=== PATIENT | male | born 1965 | race Caucasian/White ===

== ENCOUNTER → 2017-03-13 12:22 | Outpatient (CLI) | payer BC, SELFPAY ==
--- NOTE | 2017-03-13 12:34 | CT_ITS ---
CT angio head CLINICAL INDICATION: ITS.REASON: CVA DUE TO THROMBOSIS RT CEREBRAL ARTERY ORDERING PHYSICIAN: Funmilayo May MD PATIENT AGE: 52 years TECHNIQUE: Axial images are obtained following the bolus administration of 100 mL's of Isovue-370. Sagittal and coronal reformatted images are generated and reviewed COMPARISON: CT angiogram of the neck of the same day FINDINGS: No aneurysm or Major intracranial occlusive process is evident. No evidence of arteriovenous malformation. The carotids and vertebrals are patent. Basilar artery has an unremarkable appearance. Patient has a known right occipital infarction as seen on MRI of the same day. The proximal and mid aspect of the posterior cerebral arteries are patent. No enhancing lesions are evident. No intracranial mass or midline shift. IMPRESSION: Negative CTA of the brain
--- NOTE | 2017-03-13 12:34 | CT_ITS ---
CT angio neck CLINICAL INDICATION: ITS.REASON: CVA DUE TO THROMBOSIS OF RT POST.CEREBRAL ARTERY ORDERING PHYSICIAN: Funmilayo May MD PATIENT AGE: 52 years TECHNIQUE: Axial images obtained following the intravenous administration of 100 and MLO spot 70. Sagittal, coronal, and 3-D reformatted images are also generated and reviewed COMPARISON: None FINDINGS: The great vessels have an unremarkable appearance. No carotid stenosis or carotid or vertebral dissection evident. Vertebral arteries are patent bilaterally. No neck mass or other significant anomalies apparent. There are degenerative changes in the cervical spine with multilevel degenerative disc disease with endplate disc osteophyte complexes. There is canal stenosis with bilateral foraminal narrowing at C3-C4 and to a lesser degree at C4-C5 and C5-C6 as well as C6-C7. MRI cervical spine Evaluation of clinically warranted. IMPRESSION: 1. Negative CT angiogram of the neck. No evidence of carotid stenosis. Vertebral arteries are patent. 2. Multilevel cervical spondylosis with canal and facet narrowing which may be better evaluated with MRI clinically desired
--- NOTE | 2017-03-13 13:27 | MR_ITS ---
MR head/brain wo con HISTORY: Right-sided facial numbness with visual disturbance, stroke, post CVA ORDERING PHYSICIAN: Funmilayo May MD PATIENT AGE: 52 years COMPARISON: 01/04/2017 TECHNIQUE: Standard multiplanar multiecho sequences are performed without and with gadolinium enhancement. FINDINGS: No midline shift or mass effect is evident. There are old bilateral lacunar infarctions of the basal ganglia as well as an old small infarction of the right superior cerebellum. There is a new area of increased diffusion signal and T2 signal in the medial aspect of the right occipital lobe posteriorly measuring 3 cm longitudinal and 1.7 cm transverse consistent with an area of acute/subacute infarction. This does show some decrease signal on the ADC images. There is some minimal increased T1 signal in the right occipital lobe along the lateral and anterior aspect of the infarction and could be related to a small amount of hemorrhage not readily apparent on the previous study. No enhancing lesions are evident. The cerebellopontine angles, cerebellum, and brainstem are unremarkable. There are periventricular ischemic gliotic changes. There is mild mucosal thickening of the paranasal sinuses. No air-fluid level demonstrated. IMPRESSION: 1. Interval development of acute/subacute infarction in the right occipital lobe. There is some minimal increased T1 signal along the anterior and lateral aspect of the infarction which could be related to some late subacute hemorrhage. 2. Old bilateral lacunar infarctions
--- NOTE | 2017-03-13 14:16 | CA_ITS ---
PROCEDURE: 2-D M-mode and color Doppler study INDICATIONS FOR THE TEST: Chest pain COPD Heart Murmur Tobacco SmokingX Palpitations Fatigue SyncopeX Edema HypertensionXDiabetes Mellitus Rheumatic Fever SOBXDOEXObesity HyperlipidemiaX Family History HD Additional History CVA PATIENT INFORMATION HEIGHT: 67 WEIGHT:185 GENDER: Male B/P:180/90 2-D/M-MODE INTERPRETATION: 2-D MEASUREMENTS OBSERVED VALUES IN CMS Right Ventricular Dimension (RVDd) 3.4 Interventricular Septum (Thickness)(IVsd) 1.0 Left Ventricular Internal Dimensions(LVIDd) 4.9 Left Ventricular Posterior Wall (Thickness)(LVPWd) 1.2 Aortic Root 3.5 Aortic Cusp Separation 1.7 Left Atrial Dimensions (LAD) 3.5 2D 1. Left atrium is normal size, left ventricle is normal size, left ventricle wall thickness is upper limit of the normal, there is preserved left ventricular systolic function, visually estimated ejection fraction 55% with no obvious regional wall motion abnormality. 2. The right atrium and right ventricle are qualitatively normal size and contractility. 3. The aortic valve is thickened and calcified leaflet can't display good mobility. 4. The mitral and tricuspid valve are structurally normal. 5. The pulmonic valve is poorly visualized. 6. No significant pericardial effusion noted. DOPPLER INTERROGATION: Doppler interrogation of the aortic, mitral and tricuspid valve reveals presence of mild mitral and tricuspid regurgitation, tricuspid and jet velocity is insufficient for calculation of the right ventricular systolic pressure, diastolic parameters are inconclusive. CONCLUSION: 1. Normal left ventricular size, preserved left ventricular systolic function, visually estimated ejection fraction 55% with no obvious regional wall motion abnormality, diastolic parameters are inconclusive. 2. Thickened and calcified aortic valve without Doppler evidence of aortic stenosis aortic insufficiency. 3. Mild mitral and tricuspid regurgitation. 4. No significant pericardial effusion noted.
[2017-03-13 16:56] LABS: Alanine Aminotransferase 49 U/L (12-78); Albumin Level 4.2 gm/dL (3.4-5.0); Albumin/Globulin Ratio 1.3 (1.1-1.8); Alkaline Phosphatase 77 U/L (46-116); Anion Gap 11.6 mEq/L (5-15); Aspartate Amino Transferase 16 U/L (15-37); Bilirubin,Total 0.4 mg/dL (0.2-1.0); Blood Urea Nitrogen 13 mg/dL (7-18); Carbon Dioxide 30 mmol/L (21.0-32.0); Chloride 102 mmol/L (98-107); Chol/HDL Ratio 4.2 (1-3.5); Cholesterol 160 mg/dL (140-200); Creatinine,Serum 0.81 mg/dL (0.70-1.30); Estimated Glomerular Filt Rate > 60 ml/min (>60); GFR (African American) > 60 ML/MIN (>60); Globulin 3.3 gm/dl (1.3-3.2); Glucose 97 mg/dL (74-106); HDL Cholesterol 38 mg/dL (27-67); LDL Cholesterol 94 mg/dL (0-130); Potassium 3.6 mmoL/L (3.5-5.1); Sodium 140 mmol/L (136-145); Total Protein,Serum 7.5 gm/dL (6.4-8.2); Triglycerides 140 mg/dL (30-200); VLDL Cholesterol 28 mg/dL (0-40)
[2017-03-13 17:16] LABS: Erythrocyte Sedimentation Rate 29 mm/hr (0-20)
== END ==
PROVIDERS: Family Provider Family Medicine; PCP Family Medicine; Visit Provider Specialist
DX: I63.331 Cerebral infarction due to thrombosis of right posterior cerebral artery (principal); J44.9 Chronic obstructive pulmonary disease, unspecified
CPT/HCPCS: 36415; 70496; 70498; 70551; 80053; 80061; 85651; 93005; 93225; 93226; 93306

== ENCOUNTER → 2017-03-20 14:07 | Outpatient (POV) | payer BC, SELFPAY ==
[2017-03-21 13:05] LABS: Glucose,Fasting 110 mg/dL (60-105)
[2017-03-21 16:34] LABS: Hemoglobin A1C 6.4 % (0.0-7.0)
== END ==
PROVIDERS: Family Provider Family Medicine; PCP Family Medicine
DX: E11.9 Type 2 diabetes mellitus without complications (principal)
CPT/HCPCS: 36415; 82947; 83036

== ENCOUNTER → 2017-03-21 10:58 | Outpatient (CLI) | payer BC, SELFPAY | PROVIDERS: PCP Family Medicine | DX: E11.9 Type 2 diabetes mellitus without complications (principal) ==

== ENCOUNTER → 2017-04-02 12:34 | Outpatient (CLI) | payer BC, SELFPAY ==
[2017-04-02 14:20] VITALS: PULSE 55; PULSE 60
== END ==
PROVIDERS: Family Provider Family Medicine; PCP Family Medicine; Visit Provider Family Medicine
DX: F17.210 Nicotine dependence, cigarettes, uncomplicated (principal); R06.09 Other forms of dyspnea
CPT/HCPCS: 94060; 94640

== ENCOUNTER → 2017-04-23 07:12 | Outpatient (CLI) | payer BC, SELFPAY ==
--- NOTE | 2017-04-23 07:12 | NM_ITS ---
History and Indications: Hypertension, tobacco use and shortness of breath Procedure: Patient exercised on Bonilla protocol 7, resting heart rate was 45 beats per, resting blood pressure 136/75, with exercise maximum heart rate achieved was 103 bpm which is equal to 61% of the maximum predicted heart rate and a blood pressure was 172/80. Test was started due to shortness of breath, patient denied any complained of chest pain, shortness good exercise capacity achieved 10.1mets of workload on treadmill, the blood pressure response to exercise was adequate, patient did not achieve the target heart rate. Electrocardiogram: Resting electrocardiogram showed sinus bradycardia, with exercise occasional premature ventricular complex seen, less than 1.[address] segment depression noted from the baseline EKG. The EKG portion of the exercise Myoview is nondiagnostic as patient did not achieve the target heart rate. Cardiac stress and resting SPECT images: Cardiac stress and resting SPECT images were obtained technetium 99 Myoview 10.4 mCi at rest and 32.1 mCi at stress, gated SPECT further analysis of segmental wall motion and calculation of the ejection fraction also done. Cardiac stress and rest SPECT images show uniform myocardial activity without any segmental perfusion abnormality, computer derived ejection fraction is 60% with no obvious regional wall motion abnormality, right ventricle is normal size and contractility. Conclusion: 1. The EKG portion of the exercise Myoview is nondiagnostic as patient did not achieve the target heart rate, patient has good exercise capacity achieved 10.1mets of workload on treadmill, the blood pressure response to exercise was adequate, there was no exercise-induced chest discomfort. 2. No obvious scintigraphic evidence of reversible ischemia seen at this level of exercise, computer derived ejection fraction is 60% with no obvious regional wall motion abnormality, right ventricle is normal size and contractility.
--- NOTE | 2017-04-23 07:38 | HMH.ITSHM ---
BENAZEPRIL AMLODIPINE ATORVASTATIN BYSTOLIC GABAPENTIN HYDROCHLOROTHIAZIDE CLOPIDOGREL OXYCODONE ASA
== END ==
PROVIDERS: Family Provider Family Medicine; PCP Family Medicine; Visit Provider Internal Medicine
DX: R55 Syncope and collapse (principal); I63.9 Cerebral infarction, unspecified
CPT/HCPCS: 78452; 93017; A9502

== ENCOUNTER → 2017-05-22 13:54 | Outpatient (POV) | payer BC, SELFPAY | PROVIDERS: Family Provider Family Medicine; PCP Family Medicine | DX: Z00.00 Encounter for general adult medical examination without abnormal findings (principal) ==

== ENCOUNTER → 2017-05-30 08:42 | Outpatient (CLI) | payer BC, SELFPAY ==
--- NOTE | 2017-05-30 08:43 | AS_ITS ---
Renal Arterial Duplex Indications: 405.91 Unspecified renovascular hypertension. CVA. Dizziness IMPRESSIONS 1. Less than 60% stenosis involving the left renal artery 2. The right renal artery appears normal. Complete renal arterial duplex. Duplex scan and Doppler flow study including spectral analysis, color and vasquez scale imaging. Height: Height: 170.2cm. Height: 67in. Weight: Weight: 129.3kg. Weight: 284.4lb. Body mass index: BMI: 44.6kg/m^2. Body surface area: BSA: 2.54m^2. Location: Vascular laboratory. Patient status: Outpatient. Tables: Arterial flow: + +-------+--------+---------+ Location V sys V ed Resistive + +-------+--------+---------+ Right renal - proximal 187cm/s 60.3cm/s --------- + +-------+--------+---------+ Right renal - mid 194cm/s 66.9cm/s --------- + +-------+--------+---------+ Right renal - distal 139cm/s 45.6cm/s --------- + +-------+--------+---------+ Left renal - proximal 291cm/s 103cm/s --------- + +-------+--------+---------+ Left renal - mid 274cm/s 90cm/s --------- + +-------+--------+---------+ Left renal - distal 198cm/s 67.3cm/s --------- + +-------+--------+---------+ Right renal - Origin 222cm/s 70cm/s 0.68 + +-------+--------+---------+ Left renal - Origin 304cm/s 90cm/s 0.70 + +-------+--------+---------+ Aorta 117cm/s -------- --------- + +-------+--------+---------+ Artery mapping: + +--------+ Location Diameter + +--------+ Abdominal aorta - mid 1.91mm + +--------+ Renal anatomy: + +------+------+ Left Right + +------+------+ Long axis 10.6cm 10.9cm + +------+------+ Short axis 5.2cm 5.3cm + +------+------+ Velocity ratios: + +-----+ V sys + +-----+ Right renal/aortic 1.9 + +-----+ Left renal/aortic 2.6 + +-----+ Electronically signed by: Laura Diaz [id number]
== END ==
PROVIDERS: Family Provider Family Medicine; PCP Family Medicine; Visit Provider Internal Medicine
DX: R00.1 Bradycardia, unspecified (principal)
CPT/HCPCS: 93976

== ENCOUNTER → 2017-07-08 07:52 | Outpatient (CLI) | payer BC, SELFPAY ==
--- NOTE | 2017-07-08 07:52 | MR_ITS ---
MR head/brain wo con Ordering Physician: Angelina Jewell Patient Age: 52 years: Male HISTORY: ITS.REASON: CVA hx-new onset headache Constant headache mostly in the right side since December. TECHNIQUE: Noncontrast Multiplanar FLAIR, T1, T2 weighted images along with axial diffusion/ADC imaging performed on 1.5 T. Siemens, MRI. . COMPARISON : Prior CTA had and MR brain 2017 FINDINGS we again see numerous small foci of abnormal FLAIR and T2 signal. These of would appear to reflect small old lacunar infarcts and old ischemic foci. Demyelinating disease cannot be excluded with this appearance, particularly with the lesion seen along right aspect of the genu of corpus callosum anterior to the right frontal horn. Overall these features these appear fairly stable and are detailed below for documentation:..: -- Left Cerebral Hemisphere,: We again see the small old thin lacunar infarct anterior aspect of the left basal ganglia. High signal gliosis continues from this area overlying the anterior horn on left. This appearance unchanged. .. Stable small linear area of high FLAIR signal extending upward from the posterior left basal ganglia into the licea radiata tracts. Next there is a tiny high signal area at the posterior left thalamus-.. These latter 2 areas appear stable morphology but are not quite as bright today. This likely is merely due to technique. -- Right Cerebral Hemisphere: A stable small old lacunar is seen at the posterior right basal ganglia measuring up to 6.5 mm length 7 mm x 6 mm old lacunar appearing focus, seen overlying the anterior aspect frontal horn of right lateral ventricle. It too is stable , old with minimal surrounding gliosis. Subtle linear fluid signal area with no associated gliosis seen seen posteriorly at the centrum semiovale on axial T2 image 18. Finally noted a the small old stable likely old tiny lacunar infarct at the posterior right cerebellar peduncle. Unchanged since prior study -------- On previous March 2017 diffusion image there there is moderate intense signal at the RIGHT O CCIPITAL LOBE suggesting recent ischemia. We no longer see the diffusion signal at the right occipital lobe and there is no atrophy nor gliosis of a completed infarct in this this may reflect some reversible ischemia possibly On today's diffusion images there is less intense, subtle increased diffusion signal at the medial aspect of the LEFT OCCIPITAL lobe axial images 14-12.. Corresponding ADC with perhaps slight decreased signal but this is equivocal. Findings suggest likely recent ischemia at the left occipital lobe. Correlation required. This of subtle abnormal diffusion signal roughly spans 2 cm AP x 1.5 cm transverse. .. Only subtle slight increased FLAIR signal is seen in the same region. Clinical correlation required. Are there recent symptoms referable to the left occipital lobe? Is there history of visual migraines? Otherwise the CP angles are clear mastoid air cells unremarkable. Paranasal sinuses demonstrate only mild mucosal thickening inferior right maxillary sinus... This is more pronounced on previous study. Mucosal thickening throughout ethmoid air cells most notable right. Slight more evident today.. Borderline mucosal thickening at the frontal sinuses and posterior sphenoid sinus. Orbits unremarkable. Normal flow void at the dural venous sinuses. Incidentally note Cervical spondylosis at C3/4... Disc//osteophyte features indenting anterior aspect of thecal sac IMPRESSION: 1. Suggestion Interval development of ischemia, or possible minimal developinginfarct in the LEFT OCCIPITAL LOBE. subtle increased diffusion signal here today not seen previously. Clinical correlation required. Are there visual sym
== END ==
PROVIDERS: Family Provider Family Medicine; PCP Family Medicine; Visit Provider Nurse Practitioner Family
DX: I63.331 Cerebral infarction due to thrombosis of right posterior cerebral artery (principal); R51 Headache; R55 Syncope and collapse; R53.83 Other fatigue; R53.1 Weakness; R42 Dizziness and giddiness; Z72.0 Tobacco use
CPT/HCPCS: 70551

== ENCOUNTER 2017-08-07 08:30 | Outpatient (RCR) | payer BC, SELFPAY ==
--- NOTE | 2017-07-22 16:19 | HMH.PTOPEV ---
PT Outpatient Evaluation Rehab PT Outpatient Evaluation Start: 07/22/17 15:00 Freq: Status: Active Protocol: Document 07/22/17 16:09 PHORJESSICA (Rec: 07/22/17 16:19 PHORNE [id number]) Electronically Signed By Dewey Keller, PT 07/22/17 16:09 Outpatient Therapy Subjective History Subjective History Pt presents with c/o decreased coordination and frequent fatigue 6 mos S/P CVA with right hemiparesis. He reports minimal weakness, but easily fatigued and difficulty with fine motor tasks, especially writing. He also has hx of a possible new left occipital infarct of unknown severity. He reports feeling quick to anger and frustration with any task he has difficulty with. PMH: HTN, smoker, Glaucoma. Pt would be excellent candidate for Speech Therapy and Occupational Therapy as well. Chief Complaint Weakness Decreased Coordination Symptoms Relieved By Nothing Symptoms Aggravated By Physical Activity Prior Functional Limitations None Current Functional Limitations Housework Dressing Recreation Activity Balance Eval Gait/Posture Asssessment General Gait Observation Wide Based Gait Decrease Stride Lngth (R) Hip Observation in Gait Swing Circumducted Ankle/Foot Observation in Gait Swing Decreased Foot Clearance Timed Up and Go Test 3. Is the Timed Up and Go Test result < yes 12 seconds? Oculomotor Gaze Oculomotor Gaze Abn: Vergence Smooth Pursuit Rhomberg Feet Together/Eyes open/Stable Surface pass Feet Together/Eyes Closed/Stable Surface fail Feet Together/Eyes open/Unstable Surface fail Feet Together/Eyes Closed/Unstable fail Surface Outpatient Therapy Assessment Impairments Problems/Impairmments Impaired Strength Impaired Endurance Impaired Gait Pattern Impaired Walking Impaired Household Care Impaired Recreational Activities Impaired Balance Impaired Self Care/Self Managemen
== END 2017-08-07 08:31 | disposition home or self-care (01) ==
LOC: PT 08:30
PROVIDERS: Family Provider Family Medicine; PCP Family Medicine; Visit Provider Nurse Practitioner Family
DX: I63.9 Cerebral infarction, unspecified (principal)
CPT/HCPCS: 97112; 97163

== ENCOUNTER → 2017-09-25 12:35 | Outpatient (CLI) | payer BC, SELFPAY | PROVIDERS: Visit Provider Physician Assistant | DX: R00.1 Bradycardia, unspecified (principal) | CPT/HCPCS: 93225; 93226 ==

== ENCOUNTER → 2017-10-02 12:53 | Outpatient (CLI) | payer BC, SELFPAY ==
[2017-10-02 13:57] LABS: T4 (Thyroxine) 9.3 ug/dl (4.7-13.3); Thyroid Stimulating Hormone 1.34 uIU/ml (0.358-3.740); Triiodothryronine (T3) Uptake 32 % (31-39)
[2017-10-04 06:40] LABS: Testosterone,Free 6.1 pg/mL (7.2-24.0)
[2017-10-05 18:03] LABS: Testosterone, Total, LC/MS 416.2 ng/dL (264.0-916.0)
== END ==
PROVIDERS: Family Provider Family Medicine; PCP Family Medicine; Visit Provider Physician Assistant
DX: R53.83 Other fatigue (principal); G47.9 Sleep disorder, unspecified
CPT/HCPCS: 36415; 84402; 84403; 84436; 84443; 84479

== ENCOUNTER 2018-01-09 15:07 | Outpatient (RCR) | payer BC, SELFPAY ==
--- NOTE | 2018-01-09 16:29 | HMH.SLDYSPHA ---
Speech & Language Evaluation Speech/Language Dysphagia Evaluation Start: 01/09/18 16:01 Freq: ONCE Status: Active Protocol: Document 01/09/18 16:01 MICHEL (Rec: 01/09/18 16:29 MICHEL [id number]) Dysphagia Assess/Goals/Plan Assessment Date of Evaluation: 01/09/18 Evaluation Type Initial Certification Assessment/Problems Dysphagia Does Patient Qualify for Service Yes Qualify/Failure Comment Mr. Monet was given HEP and compensatory strategies to try at home for 1 week and follow up with [facility]. Recommendations PHYSICIAN CERTIFICATION: The specified therapy services are required, authorized, and reviewed every 30 days. Pt will be seen # times/week 1 for # weeks 2 Diet Recommendations Normal Liquid Type Recommendations Normal/Thin SL Swallow Guidelines Standard Aspiration Prec. Crush Meds Small pills w/applesauce Dysphagia Swallow Precautions/Strategies Sitting Upright (90 deg) Turn Head Right Chin Tuck Small Bites and Sips Alternate Liquids/Solids Plan Anticipate reaching STG in # weeks 2 Anticipate reaching LTG in # weeks 2 Pt/Guardian verbally ack understanding Yes of dx/prognosis/goals G -code Required No STG-Other Comment/Non-Specific Mr. Monet will use chin down/ head turn to right with all consistencies 3/3 trials with minimal cues. Mr. Monet will complete laryngeal elevation exercises 20/20 times with mdoel only. Mr. Monet will compelete Christie tongue exercise 3/3 trials. Mr. Monet will contact [facility] in 1 week to follow up after HEP is complete. 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 Dysphagia:Food Presentation Evaluation Food Type Pureed Chopped Regular Liquid Pudding Normal/Thin Liquid Response Clears throat Dysphagia Evaluation Chopped Food Multiple swallow attempts Behavior Response Dysphagia Evaluation Regular Food Mul
== END 2018-01-09 15:08 | disposition home or self-care (01) ==
LOC: ST 15:07
PROVIDERS: Visit Provider Family Medicine
DX: R13.12 Dysphagia, oropharyngeal phase (principal)
CPT/HCPCS: 92610

== ENCOUNTER → 2018-01-16 14:25 | Outpatient (CLI) | payer BC, SELFPAY | PROVIDERS: PCP Family Medicine; Visit Provider Physician Assistant | DX: G47.33 Obstructive sleep apnea (adult) (pediatric) (principal) | CPT/HCPCS: 95806 ==

== ENCOUNTER 2018-01-21 14:47 | Outpatient (RCR) | payer BC, SELFPAY ==
--- NOTE | 2018-01-21 16:14 | HMH.OTOPEV ---
OT Inpatient Evaluation Rehab OT Outpatient Eval Start: 01/21/18 15:59 Freq: Status: Active Protocol: Document 01/21/18 16:00 EDU (Rec: 01/21/18 16:14 [id number] Electronically Signed By Chely Jacques OT 01/21/18 16:00 Outpatient Therapy Subjective History Subjective History Pt is a 52 year old male who reports to therapy for initial evaluation to right UE. Pt reports he had a stroke ~1 year ago and his right side was affected. He also reports he has pain in the RUE as well. Pt demonstrates with normal AROM at all joints on right side. However, pt does demonstrate decreased strength at shoulder, elbow, wrist, and hand on right side. Pt also explains he has decreased endurance and he is not able to engage in activities with constant UE use. Pt will continue to be seen in order to address all deficits. 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
== END 2018-01-21 15:00 | disposition home or self-care (01) ==
LOC: OT 14:47
PROVIDERS: Visit Provider Family Medicine
DX: R29.898 Other symptoms and signs involving the musculoskeletal system (principal)
CPT/HCPCS: 97166

== ENCOUNTER → 2018-06-25 13:19 | Outpatient (POV) | payer OTHER, SELFPAY | DX: Z00.00 Encounter for general adult medical examination without abnormal findings (principal) ==

== ENCOUNTER → 2019-01-26 09:30 | Outpatient (CLI) | payer OTHER, SELFPAY | PROVIDERS: PCP Family Medicine; Visit Provider Specialist | DX: G47.33 Obstructive sleep apnea (adult) (pediatric) (principal); G47.19 Other hypersomnia; G89.29 Other chronic pain; M54.5 Low back pain; M54.9 Dorsalgia, unspecified; R29.2 Abnormal reflex; R29.898 Other symptoms and signs involving the musculoskeletal system; Z72.0 Tobacco use; Z98.890 Other specified postprocedural states | CPT/HCPCS: 94762 ==

== ENCOUNTER → 2020-12-09 14:00 | Outpatient (CLI) | payer MEDICARE, MEDICAID, SELFPAY | PROVIDERS: PCP Family Medicine; Visit Provider Nurse Practitioner Family | DX: G47.33 Obstructive sleep apnea (adult) (pediatric) (principal) | CPT/HCPCS: 94762 ==

== ENCOUNTER 2024-05-05 16:04 | Outpatient (CLI) | payer MEDICARE, SELFPAY ==
--- NOTE | 2024-05-05 16:09 | XR_ITS ---
PROCEDURE INFORMATION: Exam: XR Left Hip Exam date and time: 05/05/2024 4:14 PM Age: 59 years old Clinical indication: Hip pain; Left hip; Additional info: Left hip joint pain x 2 months TECHNIQUE: Imaging protocol: Radiologic exam of the left hip. Views: 2 or 3 views hip with pelvis when performed. COMPARISON: CR XR LUMBAR SPINE 2-3V 05/05/2024 4:14 PM FINDINGS: Bones/joints: Osteoarthritic change left hip. PLIF L4-L5. Soft tissues: Unremarkable. IMPRESSION: 1. Osteoarthritic change left hip. 2. PLIF L4-L5.
--- NOTE | 2024-05-05 16:09 | XR_ITS ---
PROCEDURE INFORMATION: Exam: XR Lumbosacral Spine Exam date and time: 05/05/2024 4:14 PM Age: 59 years old Clinical indication: Low back pain; Prior surgery; Surgery date: 6+ months; Surgery type: Lumbar; 20 years ago; Additional info: Low back pain radiating to hip TECHNIQUE: Imaging protocol: Radiologic exam of the lumbosacral spine. Views: 2 or 3 views. COMPARISON: CR XR LUMBAR SPINE 2-3V 05/05/2024 4:14 PM FINDINGS: Bones/joints: PLIF L4-L5. Soft tissues: Unremarkable. IMPRESSION: No acute findings.
--- NOTE | 2024-05-05 16:09 | XR_ITS ---
PROCEDURE INFORMATION: Exam: XR Left Knee Exam date and time: 05/05/2024 4:14 PM Age: 59 years old Clinical indication: Pain; Knee; Left; Additional info: Left knee pain x 2 months TECHNIQUE: Imaging protocol: Radiologic exam of the left knee. Views: 3 views. COMPARISON: No relevant prior studies available. FINDINGS: Bones/joints: Normal. Soft tissues: Normal. IMPRESSION: No acute findings.
== END 2024-05-05 23:59 | disposition home or self-care (01) ==
LOC: RAD 16:05
PROVIDERS: PCP Family Medicine; Visit Provider Family Medicine
DX: M51.379 Other intervertebral disc degeneration, lumbosacral region without mention of lumbar back pain or lower extremity pain (principal); M47.816 Spondylosis without myelopathy or radiculopathy, lumbar region; M25.562 Pain in left knee; M25.552 Pain in left hip
CPT/HCPCS: 72100; 73502; 73562